=== PATIENT | female | born 1945 | race Caucasian/White ===

== ENCOUNTER 2018-10-18 16:20 | Emergency (ER) | payer BC, MEDICARE ==
[~2018-10-18] VITALS: Ht 157.5 cm; Wt 58.1 kg
--- NOTE | 2018-10-18 16:30 | NUR ---
AAOX3, CAME TO ER C/O ABRASION TO NOSE BRIDGE S/P TRIPPED AND FELL THIS AFTERNOON. NO KO. RR IS EVEN AND UNLABORED WITH NAD NOTED. SKIN IS WARM AND DRY. AWAITING MD FOR EVAL.
--- NOTE | 2018-10-18 16:44 | NUR ---
DR STEWART AT BEDSIDE FOR EVAL.
--- NOTE | 2018-10-18 16:57 | NUR ---
PT TO RADIOLOGY FOR HEAD CT SCAN VIA WHEELCHAIR.
[2018-10-18] MEDS ORDERED: TDAP [DIPH/PERTUSSIS/TET] 0.5 ML VIAL IM ONE ×2 (17:00→17:14)
--- NOTE | 2018-10-18 17:54 | NUR ---
WOUND CARE PROVIDED. PT D/C HOME IN STABLE CONNDITION.
[2018-10-18 17:56] VITALS: BP 125/80
== END 2018-10-18 17:56 | disposition home or self-care (01) ==
LOC: ER 16:23
DX: S00.83XA Contusion of other part of head, initial encounter (principal); S00.31XA Abrasion of nose, initial encounter; R51 Headache; W01.198A Fall on same level from slipping, tripping and stumbling with subsequent striking against other object, initial encounter; Y93.89 Activity, other specified; Y92.89 Other specified places as the place of occurrence of the external cause; Y99.8 Other external cause status
CPT/HCPCS: 70450; 90471; 90715; 99284; A4606; A6402; A6403